=== PATIENT | female | born 1960 | race Caucasian/White ===

== ENCOUNTER 2018-04-28 07:59 | Emergency (ER) | payer MEDICAID ==
[~2018-04-28] VITALS: Ht 167.6 cm; Wt 119.7 kg
[~2018-04-28 07:59] MED LIST: LANS30CA37 PO; ONDA8TAB9 PO
[2018-04-28 08:06] VITALS: BP 137/75
[2018-04-28] MEDS ORDERED: HYDR28CR14 TOP (08:22)
[2018-04-28] MEDS ORDERED: METH4TAB3 PO (08:22)
== END 2018-04-28 08:34 | disposition home or self-care (01) ==
LOC: ER 08:00
DX: R21 Rash and other nonspecific skin eruption (principal); I10 Essential (primary) hypertension; G89.29 Other chronic pain; E11.9 Type 2 diabetes mellitus without complications; Z90.49 Acquired absence of other specified parts of digestive tract; Z88.0 Allergy status to penicillin; Z79.899 Other long term (current) drug therapy
CPT/HCPCS: 99283

== ENCOUNTER 2018-05-30 10:30 | Inpatient (IN) | payer MEDICAID | END 2018-05-31 17:20 | disposition home or self-care (01) | LOC: ER 10:30 → ED HOLD 14:39 → PCU 3S 18:30 ==

== ENCOUNTER 2019-06-07 03:01 | Emergency (ER) | payer MEDICAID ==
[~2019-06-07] VITALS: Ht 170.2 cm; Wt 109.3 kg
[~2019-06-07 03:01] MED LIST changes: +HYDR28CR14 TOP; +METH4TAB3 PO; +TAM75C PO
[2019-06-07 03:06] VITALS: BP 162/88
== END 2019-06-07 03:36 | disposition home or self-care (01) ==
LOC: ER 03:02
DX: K13.0 Diseases of lips (principal); I10 Essential (primary) hypertension; E11.9 Type 2 diabetes mellitus without complications; G89.29 Other chronic pain; Z90.49 Acquired absence of other specified parts of digestive tract; Z88.1 Allergy status to other antibiotic agents; Z88.8 Allergy status to other drugs, medicaments and biological substances; Z88.0 Allergy status to penicillin; Z79.899 Other long term (current) drug therapy
CPT/HCPCS: 99281

== ENCOUNTER 2019-07-16 12:11 | Inpatient (IN) | payer MEDICAID ==
[~2019-07-16] VITALS: Ht 167.6 cm; Wt 107.7 kg
[2019-07-16 13:16] LABS: BASOPHILS # (AUTO) 0.1 X10'3 (0-0.2); BASOPHILS % (AUTO) 1.2 % (0-1); EOSINOPHILS # (AUTO) 0.3 X10'3 (0-0.9); EOSINOPHILS % (AUTO) 3.1 % (0-6); HEMATOCRIT 34.8 % (35.0-45.0); HEMOGLOBIN 11.8 g/dl (12.0-16.0); LYMPHOCYTES # (AUTO) 1.3 X10'3 (1.1-4.8); MEAN CORPUSCULAR HEMOGLOBIN 26.5 PG (27.0-31.0); MEAN PLATELET VOLUME 6.4 FL (7.4-10.4); MONOCYTES # (AUTO) 0.6 X10'3 (0-0.9); MONOCYTES % (AUTO) 7.3 % (2-12); NEUTROPHILS % (AUTO) 72.4 % (42-75); PLATELET COUNT 281 X10'3 (140-440); RED BLOOD COUNT 4.46 X10'6 (4.20-5.60); RED CELL DISTRIBUTION WIDTH 13.7 % (11.5-14.5); WHITE BLOOD COUNT 8.3 X10'3 (4.5-11.0)
[2019-07-16 13:44] LABS: ALANINE AMINOTRANSFERASE 26 U/L (12-78); ALBUMIN 3.2 G/DL (3.4-5.0); ALBUMIN/GLOBULIN RATIO 0.7 (1.1-1.5); ALKALINE PHOSPHATASE 132 IU/L (46-116); ANION GAP 11 (8-16); ASPARTATE AMINO TRANSFERASE 29 U/L (10-37); BILIRUBIN,TOTAL 0.3 MG/DL (0.1-1.0); BLOOD UREA NITROGEN 14 MG/DL (7-18); BUN/CREATININE RATIO 13.2 (6.6-38.0); CALCIUM 7.9 MG/DL (8.5-10.1); CHLORIDE 83 MMOL/L (99-107); CREATININE 1.06 MG/DL (0.40-0.90); GLUCOSE 128 MG/DL (70-104); POTASSIUM 3.8 MMOL/L (3.5-5.1); TOTAL CARBON DIOXIDE 21.3 MMOL/L (24-32); TOTAL PROTEIN 7.6 G/DL (6.4-8.2); eGFR 53 ML/MIN
[2019-07-16 13:49] LABS: SODIUM 115 MMOL/L (135-145)
[2019-07-16] MEDS ORDERED: normal saline 1000ML IV soln IVB ONE (13:55)
[2019-07-16 14:06] LABS: CLARITY,URINE SLIGHTLY CLOUDY (Clear); COLOR,URINE STRAW (Yellow); GLUCOSE, URINE NEGATIVE (Neg); KETONES,URINE NEGATIVE (Neg); LEUKOCYTE ESTERASE ,URINE TRACE (Neg); NITRITES, URINE NEGATIVE (Neg); OCCULT BLOOD,URINE SMALL (Neg); PROTEIN,URINE NEGATIVE (Neg); UROBILINOGEN,URINE 0.2 E.U/dL (0.2-1.0)
[2019-07-16 14:08] LABS: UA COLLECTION TYPE CLN CATCH MIDSTREAM
[2019-07-16] MEDS ORDERED: mag hydrox/Alum hydrox/simeth 30ml oral suspension PO PRN (14:10)
[2019-07-16] MEDS ORDERED: acetaminophen 325mg tablet PO PRN (14:10)
[2019-07-16] MEDS ORDERED: ondansetron/PF 4mg/2ml inj IV PRN (14:10)
[2019-07-16] MEDS ORDERED: magnesium hydroxide 30ml (MOM) UD suspension PO PRN (14:10)
[2019-07-16 14:11] LABS: SQUAMOUS EPITHELIAL CELL,UR MODERATE /LPF (FEW)
[2019-07-16 14:12] LABS: BACTERIA,URINE 2+ /HPF (Neg); RBC,URINE 0-2 /HPF (0-2)
[2019-07-16] MEDS ORDERED: LISI1TAB28 PO (15:03)
[2019-07-16] MEDS ORDERED: PANT40TA4 PO (15:03)
[2019-07-16] MEDS ORDERED: ONDA-103 PO (15:03)
[2019-07-16] MEDS ORDERED: LEVO100T9 PO (15:03)
[2019-07-16] MEDS ORDERED: HYDR-3686 PO (15:03)
[2019-07-16] MEDS ORDERED: METF-950 PO (15:03)
[2019-07-16] MEDS ORDERED: ESTR1TAB28 PO (15:03)
[2019-07-16] MEDS ORDERED: MELO-102 PO (15:03)
[2019-07-16] MEDS ORDERED: GABA-532 PO (15:03)
[2019-07-16] MEDS: normal saline 1000ml 1,000 ML IV SCH (16:20)
--- NOTE | 2019-07-16 16:39 | NUR ---
Patient in room ED 13. I have received report from ALEXIS Calle and had the opportunity to ask questions and assume patient care.
--- NOTE | 2019-07-16 17:00 | NUR ---
pt arrived on unit
[2019-07-16 17:09] LABS: SODIUM,URINE RANDOM < 15 MEQ/L
[2019-07-16 17:11] LABS: OSMOLALITY UA 140 MOSM/K (50-1400)
[2019-07-16 17:15] VITALS: BP 134/53
--- NOTE | 2019-07-16 18:20 | NUR ---
Patient in room PCU 3017. I have received report from Kaur ESPINOZA and had the opportunity to ask questions and assume patient care.
--- NOTE | 2019-07-16 18:31 | NUR ---
Problems reprioritized. Patient report given, questions answered & plan of care reviewed with ALEXIS Nicolas.
[2019-07-16] MEDS ORDERED: gabapentin 300mg capsule PO PRN (18:40)
[2019-07-16] MEDS ORDERED: ondansetron 4mg rapidly disintigrating tab PO PRN (18:43)
[2019-07-16 19:00] VITALS: BP 141/67
[2019-07-16 19:11] LABS: HEMOGLOBIN A1C 6.4 % (4.5-6.2)
[2019-07-16] MEDS: HYDROchlorothiazide 12.5mg capsule PO SCH (20:05)
[2019-07-16] MEDS: pantoprazole 40mg Tablet.DR PO SCH (20:06)
[2019-07-16] MEDS: lisinopril 20mg tablet PO SCH (20:06)
[2019-07-16] MEDS: hydrOXYzine 25 MG tablet PO SCH (20:07)
[2019-07-16] MEDS: heparin, porcine 5000 units/ml vial SQ SCH (20:07)
[2019-07-16 22:56] LABS: ANION GAP 10 (8-16); BLOOD UREA NITROGEN 14 MG/DL (7-18); BUN/CREATININE RATIO 12.2 (6.6-38.0); CALCIUM 8.1 MG/DL (8.5-10.1); CHLORIDE 87 MMOL/L (99-107); CREATININE 1.15 MG/DL (0.40-0.90); GLUCOSE 139 MG/DL (70-104); POTASSIUM 3.8 MMOL/L (3.5-5.1); SODIUM 121 MMOL/L (135-145); TOTAL CARBON DIOXIDE 24.1 MMOL/L (24-32); eGFR 48 ML/MIN
[2019-07-16 23:00] VITALS: BP 140/53
[2019-07-17 03:00] VITALS: BP 102/44
[2019-07-17] MEDS: normal saline 1000ml 1,000 ML IV SCH ×2 (03:00→10:08)
[2019-07-17 06:00] VITALS: BP 118/61
--- NOTE | 2019-07-17 06:13 | NUR ---
Problems reprioritized. Patient report given, questions answered & plan of care reviewed with Kaur RN.
[2019-07-17 06:22] LABS: ALBUMIN 3.1 G/DL (3.4-5.0); ANION GAP 10 (8-16); BLOOD UREA NITROGEN 14 MG/DL (7-18); BUN/CREATININE RATIO 12.8 (6.6-38.0); CALCIUM 8.2 MG/DL (8.5-10.1); CHLORIDE 90 MMOL/L (99-107); CREATININE 1.09 MG/DL (0.40-0.90); GLUCOSE 119 MG/DL (70-104); POTASSIUM 3.8 MMOL/L (3.5-5.1); SODIUM 126 MMOL/L (135-145); eGFR 51 ML/MIN
[2019-07-17 06:25] LABS: BASOPHILS # (AUTO) 0.1 X10'3 (0-0.2); BASOPHILS % (AUTO) 1.9 % (0-1); EOSINOPHILS # (AUTO) 0.4 X10'3 (0-0.9); EOSINOPHILS % (AUTO) 7.3 % (0-6); HEMATOCRIT 34.2 % (35.0-45.0); HEMOGLOBIN 11.7 g/dl (12.0-16.0); LYMPHOCYTES % (AUTO) 20.4 % (21-51); MEAN CORPUSCULAR HEMOGLOBIN 26.6 PG (27.0-31.0); MEAN CORPUSCULAR HGB CONC 34.1 g/dL (33.0-36.5); MEAN CORPUSCULAR VOLUME 77.8 FL (78-98); MEAN PLATELET VOLUME 6.6 FL (7.4-10.4); MONOCYTES # (AUTO) 0.5 X10'3 (0-0.9); NEUTROPHILS % (AUTO) 60.4 % (42-75); PLATELET COUNT 277 X10'3 (140-440); RED CELL DISTRIBUTION WIDTH 14.1 % (11.5-14.5)
--- NOTE | 2019-07-17 06:27 | NUR ---
Patient in room [place] [address]. I have received report from ALEXIS Felton and had the opportunity to ask questions and assume patient care. Addendum: 07/17/19 at 0631 by Kaur Luna RN Patient in room [place] [id number]. I have received report from ALEXIS LLOYD - NOT ALEXIS Felton - and had the opportunity to ask questions and assume patient care.
[2019-07-17] MEDS: levoTHYROXINE 100mcg tablet PO SCH (08:33)
[2019-07-17] MEDS: hydrOXYzine 25 MG tablet PO SCH ×4 (08:33→20:33)
[2019-07-17] MEDS: estradiol 1mg tablet PO SCH (08:33)
[2019-07-17] MEDS: pantoprazole 40mg Tablet.DR PO SCH ×2 (08:33→20:33)
[2019-07-17] MEDS: heparin, porcine 5000 units/ml vial SQ SCH ×2 (08:34→20:34)
[2019-07-17 11:00] VITALS: BP 132/52
[2019-07-17] MEDS: CefTRIAXone/D5W-Rocephin 1gm 50 ML IV SCH (13:20)
[2019-07-17 15:00] VITALS: BP 130/54
--- NOTE | 2019-07-17 18:20 | NUR ---
Patient in room PCU 3017. I have received report from ALEXIS Dietrich and had the opportunity to ask questions and assume patient care.
--- NOTE | 2019-07-17 18:20 | NUR ---
Problems reprioritized. Patient report given, questions answered & plan of care reviewed with ALEXIS Jolly.
[2019-07-17 19:00] VITALS: BP 153/66
[2019-07-17] MEDS: HYDROchlorothiazide 12.5mg capsule PO SCH (20:34)
[2019-07-17] MEDS: lisinopril 20mg tablet PO SCH (20:34)
[2019-07-17 23:00] VITALS: BP 128/68
[2019-07-18] MEDS: normal saline 1000ml 1,000 ML IV SCH ×2 (00:03→06:16)
[2019-07-18 03:00] VITALS: BP 156/83
[2019-07-18 06:00] VITALS: BP 115/60
--- NOTE | 2019-07-18 06:08 | NUR ---
Problems reprioritized. Patient report given, questions answered & plan of care reviewed with ALEXIS Dietrich.
--- NOTE | 2019-07-18 06:25 | NUR ---
Patient in room PCU 3017. I have received report from ALEXIS Jolly and had the opportunity to ask questions and assume patient care.
[2019-07-18 06:34] LABS: ALBUMIN 2.9 G/DL (3.4-5.0); ANION GAP 8 (8-16); BLOOD UREA NITROGEN 10 MG/DL (7-18); BUN/CREATININE RATIO 10.8 (6.6-38.0); CALCIUM 8.2 MG/DL (8.5-10.1); CHLORIDE 99 MMOL/L (99-107); CREATININE 0.93 MG/DL (0.40-0.90); GLUCOSE 113 MG/DL (70-104); POTASSIUM 4.1 MMOL/L (3.5-5.1); SODIUM 133 MMOL/L (135-145); TOTAL CARBON DIOXIDE 25.6 MMOL/L (24-32); eGFR 61 ML/MIN
[2019-07-18 06:55] LABS: BASOPHILS # (AUTO) 0.1 X10'3 (0-0.2); BASOPHILS % (AUTO) 1.9 % (0-1); EOSINOPHILS # (AUTO) 0.3 X10'3 (0-0.9); HEMATOCRIT 31.7 % (35.0-45.0); HEMOGLOBIN 10.9 g/dl (12.0-16.0); LYMPHOCYTES # (AUTO) 0.8 X10'3 (1.1-4.8); MEAN CORPUSCULAR HGB CONC 34.3 g/dL (33.0-36.5); MEAN CORPUSCULAR VOLUME 78.8 FL (78-98); MEAN PLATELET VOLUME 6.6 FL (7.4-10.4); MONOCYTES # (AUTO) 0.4 X10'3 (0-0.9); MONOCYTES % (AUTO) 11.6 % (2-12); NEUTROPHILS % (AUTO) 56.5 % (42-75); PLATELET COUNT 237 X10'3 (140-440); RED BLOOD COUNT 4.02 X10'6 (4.20-5.60); RED CELL DISTRIBUTION WIDTH 13.7 % (11.5-14.5); WHITE BLOOD COUNT 3.6 X10'3 (4.5-11.0)
[2019-07-18] MEDS: pantoprazole 40mg Tablet.DR PO SCH (08:54)
[2019-07-18] MEDS: levoTHYROXINE 100mcg tablet PO SCH (08:54)
[2019-07-18] MEDS: hydrOXYzine 25 MG tablet PO SCH (08:54)
[2019-07-18] MEDS: CefTRIAXone/D5W-Rocephin 1gm 50 ML IV SCH (08:55)
[2019-07-18] MEDS: heparin, porcine 5000 units/ml vial SQ SCH (09:01)
[2019-07-18] MEDS: estradiol 1mg tablet PO SCH (09:01)
[2019-07-18] MEDS ORDERED: CEFD300C3 PO (10:18)
[2019-07-18] MEDS ORDERED: SODI100035 PO (10:18)
[2019-07-18 11:00] VITALS: BP 111/61
--- NOTE | 2019-07-18 12:48 | NUR ---
pt discharged. IV d/c'd, tele removed, all belongings sent home with pt. pt wheeled down by RN. left in private vehicle with friend.
== END 2019-07-18 13:25 | disposition home or self-care (01) | DRG 426 ==
LOC: ER 12:13 → ED HOLD 14:06 → PCU 3S 16:58
PROVIDERS: ADMIT Family Medicine; ATTEND Family Medicine
DX: E87.1 Hypo-osmolality and hyponatremia (principal); E66.01 Morbid (severe) obesity due to excess calories; E03.9 Hypothyroidism, unspecified; E11.9 Type 2 diabetes mellitus without complications; I10 Essential (primary) hypertension; W18.39XA Other fall on same level, initial encounter; G89.29 Other chronic pain; M54.9 Dorsalgia, unspecified; N39.0 Urinary tract infection, site not specified; Z90.710 Acquired absence of both cervix and uterus; Y93.89 Activity, other specified; Y92.89 Other specified places as the place of occurrence of the external cause; Y99.8 Other external cause status; Z90.49 Acquired absence of other specified parts of digestive tract; Z88.8 Allergy status to other drugs, medicaments and biological substances; Z88.0 Allergy status to penicillin; Z88.2 Allergy status to sulfonamides; Z68.38 Body mass index [BMI] 38.0-38.9, adult
CPT/HCPCS: 36415; 70450; 71045; 80048; 80053; 81001; 82948; 83036; 83930; 83935; 84295; 84300; 84443; 85025; 87077; 87081; 87088; 87186; 93005; 99285; G0378; J0696; J1644; J7030; Z7610

== ENCOUNTER 2025-01-23 03:31 | Emergency (ER) | payer MEDICARE, MEDICAID ==
[~2025-01-23] VITALS: Ht 167.6 cm; Wt 98.6 kg
[~2025-01-23 03:31] MED LIST changes: +ESTR1TAB28 PO; +GABA-532 PO; +HYDR-3686 PO; -LANS30CA37 PO; +LEVO100T9 PO; +LISI1TAB51 PO; +MELO-102 PO; +METF-1203 PO; -METH4TAB3 PO; +ONDA-103 PO; -ONDA8TAB9 PO; +PANT40TA54 PO; +SODI100035 PO; -TAM75C PO
[2025-01-23 03:33] VITALS: TEMP 96.3
--- NOTE | 2025-01-23 06:51 | Physician Documentation ---
History of Present Illness ~ Chief Complaint: Cold, cough & congestion Stated Complaint: COVID Time Seen by MD: 06:09 Primary Medical Doctor: ROSARIO BRUNER Patient with a history of diabetes in who was diagnosed with COVID 5 days ago. She has had symptoms for 6 days. She has been unable to get her Paxlovid. No significant cough just body aches. Medication Reconciliation Allergies: Coded Allergies: sulfamethoxazole (Verified Allergy, Severe, 01/23/25) FULL BODY RASH/HIVES trimethoprim (Verified Allergy, Severe, 01/23/25) FULL BODY RASH/HIVES Penicillins (Verified Allergy, Unknown, 01/23/25) Scheduled Estradiol (Estradiol), 1 TAB PO DAILY, (Reported) Hydrocortisone (hydrocortisone 1% cream), 1 APPLIC TOP Q12H Hydroxyzine Hcl* (Atarax*), 2 TAB PO QID, (Reported) Levothyroxine Sodium (Levothyroxine Sodium), 1 TAB PO DAILY, (Reported) Lisinopril/Hydrochlorothiazide (Lisinopril-Hctz 20-12.5 mg Tab), 1 TAB PO HS, (Reported) Meloxicam (Meloxicam), 1 TAB PO HS, (Reported) Metformin HCl (Metformin HCl), 1 TAB PO BID, (Reported) Pantoprazole Sodium (Pantoprazole Sodium), 1 TAB PO BID, (Reported) Sodium Chloride (Sodium Chloride), 1 TAB PO Q12H Scheduled PRN Gabapentin (Gabapentin), 1 TAB PO TID PRN for pain, (Reported) Ondansetron HCl (Ondansetron HCl), 1 TAB PO TID PRN for nausea/vomiting, (Reported) Past Medical History Past Medical History: Hypertension, Diabetes, Thyroid (unspecified), Chronic Back Pain Past Surgical History: appendectomy, other Other Past Surgical History: oopherectomy Alcohol Use: Heavy Drug Use: none Lives In: Home Review of Systems All Other Systems at this time: Reviewed and Negative Physical Exam Vital Signs: Temperature: 96.3, Source: Temporal, Heart Rate: 87, Respiratory Rate: 15, BP: 146/96, Pulse Oximetry: 95, Weight: 98.600 General Appearance: alert, WD/WN Eyes: normal inspection Neck: non-tender, full range of motion Respiratory: lungs clear, normal breath sounds, no respiratory distress Chest: no accessory muscle use Cardiovascular: regular rate, rhythm, no edema, no murmur Extremities: normal range of motion Skin: normal color, warm/dry Neurologic: oriented x4 Psychiatric: normal mood/affect Progress Results/Orders Results/Orders Vital Signs 01/23/25 03:33 Temp 96.3 Pulse 87 Resp 15 B/P (MAP) 146/96 Pulse Ox 95 Medical Decision Making Differential Diagnosis Patient who is well-appearing with unremarkable vital signs. Normal exam. Tested positive for COVID 5 days ago and has had symptoms for 6 days. Out of the window for Paxlovid. Discussed with the patient that it would not be a good idea to take it at this time as the risks would outweigh the benefits. Discharging home in good condition. Offered cough medicine but she states he really isn't coughing at this point. Follow up with PCP if not improving over the next week or return if new or worsening symptoms. Departure Disposition: 01 HOME / SELF CARE / HOMELESS Impression: Primary Impression: COVID-19 Condition: Stable Additional Instructions: Follow up with your doctor if not improving over the next week or return to the emergency room for new or worsening symptoms. Referrals: NO PRIMARY CARE PROVIDER (PCP) Education Educated: Patient Educated regarding: diagnosis, treatment, prognosis, need for follow up Signature Scribe Signature: No scribe Attestation: No [email or web address] Freed MD Jan 23, 2025 06:51
[2025-01-23 06:59] VITALS: BP 142/96; PULSE 88; RESP 16; O2SAT 95
== END 2025-01-23 07:01 | disposition home or self-care (01) ==
LOC: ER 03:31
DX: R05.9 Cough, unspecified (principal); R09.81 Nasal congestion; E11.9 Type 2 diabetes mellitus without complications; I10 Essential (primary) hypertension; F10.90 Alcohol use, unspecified, uncomplicated; Z86.16 Personal history of COVID-19; Z88.0 Allergy status to penicillin; Z88.1 Allergy status to other antibiotic agents; Z88.2 Allergy status to sulfonamides; Z90.49 Acquired absence of other specified parts of digestive tract; Y90.9 Presence of alcohol in blood, level not specified
CPT/HCPCS: 99282